=== PATIENT | female | born 1985 | race Caucasian/White ===

== ENCOUNTER 2020-07-21 17:17 | Emergency (ER) | payer SELFPAY ==
--- NOTE | 2020-07-21 17:22 | ERPHSYRPT ---
- History of Present Illness Time Seen by Provider: 07/21/20 17:22 Source: patient Exam Limitations: no limitations Physician History: This is a 35-year-old white female who presents with pain in the palmar aspect of her left hand. She does not recall any specific injury to this hand. She also does not recall seeing an insect bite present. She noticed some redness that is localized in the palm of her left hand 4 days ago and is progressively worsened showing a localized blister. She has not been running a fever. However it does hurt to flex and extend the digits of the left hand. She can do so however. She denies burning this site or injecting any drugs in the site Quality: painful Severity: moderate Location: hands (Left) Possible Causes: no cause identified Associated Symptoms: blisters (Lies palm left hand), No fever Allergies/Adverse Reactions: acetaminophen [From Darvocet-N] Allergy (Verified 07/21/20 17:31) lamotrigine [From Lamictal] Allergy (Verified 07/21/20 17:31) lithium Allergy (Verified 07/21/20 17:31) propoxyphene [From Darvocet-N] Allergy (Verified 07/21/20 17:31) clonazepam [From Klonopin] Adverse Reaction (Verified 07/21/20 17:31) Travel Risk - International Travel Have you traveled outside of the country in past 3 weeks: No - Coronavirus Screening Are you exhibiting any of the following symptoms?: No Close contact with a COVID-19 positive Pt in past 14-21 Days: No - Review of Systems Constitutional: No Symptoms Eyes: No Symptoms Ears, Nose, & Throat: No Symptoms Respiratory: No Symptoms Cardiac: No Symptoms Abdominal/Gastrointestinal: No Symptoms Genitourinary Symptoms: No Symptoms Skin: Cellulitis (Localized palm of left hand), Skin Lesions Neurological: No Symptoms Psychological: No Symptoms Endocrine: No Symptoms Hematologic/Lymphatic: No Symptoms Immunological/Allergic: No Symptoms All Other Systems: Reviewed and Negative - Past Medical History Pertinent Past Medical History: Yes - Past Surgical History Past Surgical History: Yes - Nursing Vital Signs Nursing Vital Signs: Initial Vital Signs Temperature 98.7 F 07/21/20 17:23 Pulse Rate 95 H 07/21/20 17:23 Blood Pressure 113/76 07/21/20 17:23 O2 Sat by Pulse Oximetry 99 07/21/20 17:23 Pain Scale Pain Intensity 10 - Physical Exam General Appearance: no apparent distress, alert, anxiety Eye Exam: PERRL/EOMI, eyes nml inspection Ears, Nose, Throat Exam: normal ENT inspection, moist mucous membranes Neck Exam: normal inspection, non-tender, supple, full range of motion Respiratory Exam: airway intact, No chest tenderness, No respiratory distress Pelvic Exam: not done Rectal Exam: not done Back Exam: normal inspection, normal range of motion, No CVA tenderness, No vertebral tenderness Extremity Exam: tenderness (Palmar aspect localized redness with half centimeter diameter localized central abscess. No proximal streaking. 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, normal mood/affect, nml cerebellar function, nml station & gait, sensation nml Skin Exam: other (Localized cellulitis with abscess as described above) Lymphatic Exam: No adenopathy SpO2 Interpretation: normal O2 Delivery: Room Air Procedures - Incision and Drainage Time of Procedure: 17:50 Site: Left palm of hand Blade Size: other (10-gauge needle) I & D Procedure: betadine prep, culture obtained Results: small amount pus (Odor) - Course Nursing assessment & vital signs reviewed: Yes Ordered Tests: Active Orders 24 hr Category Date Time Status HAND (MINIMUM 3 VIEWS) Stat Exams 07/21/20 17:34 Taken Medication Summary Discontinued Medications Generic Name Dose Route Start Last Admin Trade Name Maura PRN Reason Stop Dose Admin Hydrocodone Bitart/Acetaminophen 1 tab 07/21/20 17:55 07/21/20 18:06 [place] 5/325 Mg PO 07/21/20 17:56 1 tab STAT ONE Administration Hydrocodone Bitart/Acetaminophen Confirm 07/21/20 17:59 [place] 5/325 Mg Administered 07/21/20 18:00 Dose 1 tab .ROUTE .STK-MED ONE Ceftriaxone Sodium 1,000 mg 07/21/20 17:51 07/21/20 18:08 Rocephin 1000 Mg Inj IM 07/21/20 17:52 1,000 mg STAT ONE Administration Ceftriaxone Sodium Confirm 07/21/20 17:59 Rocephin 1000 Mg Inj Administered 07/21/20 18:00 Dose 1,000 mg .ROUTE .STK-MED ONE Cephalexin HCl 500 mg 07/21/20 17:51 07/21/20 18:11 Keflex 500 Mg PO 07/21/20 17:52 Not Given STAT ONE Metronidazole 500 mg 07/21/20 17:54 Flagyl 500 Mg PO 07/21/20 17:55 STAT ONE Trimethoprim/Sulfamethoxazole 1 tab 07/21/20 17:51 07/21/20 18:07 Bactrim Ds Tablet PO 07/21/20 17:52 1 tab STAT ONE Administration Trimethoprim/Sulfamethoxazole Confirm 07/21/20 17:59 Bactrim Ds Tablet Administered 07/21/20 18:00 Dose 1 tab PO .STK-MED ONE - Progress Progress Note: 07/21/20 18:04 Medical decision making: This patient has an abscess is localized in the palmar aspect of her left hand. I do not believe she has tenosynovitis at this point in time. I did incise and drain and culture the abscess that was present. There is no further amount of expressible pus. However I do feel that is important to have this patient return tomorrow morning for reassessment. If her condition is no different, recommendation will likely be to transfer her to a facility that has a hand surgeon and provide her with inpatient, IV antibiotics. Patient was also informed to return to the emergency department sooner than tomorrow if her condition worsens. 07/21/20 18:22 X-ray left hand shows no evidence of any acute fracture or dislocation. There is no foreign body present. There is no subcutaneous air/gas present. Counseled pt/family regarding: diagnosis, need for follow-up, rad results - Departure Departure Disposition: Home Clinical Impression: Abscess of left hand Condition: Stable Critical Care Time: No Additional Instructions: Keep site clean daily with soap and water. Soak left hand in warm soapy water alternated with warm Epson salts 2-3 times a day. Do not apply lotions ointments or creams to the site. Return to the emergency department tomorrow morning for reassessment and evaluation. Return sooner to the emergency department if your condition worsens. Take your medications as prescribed. Prescriptions: Hydrocodone/APAP 5/325 [[place] 5/325 mg] 1 each PO Q8H PRN PRN #8 tablet MDD 3 PRN Reason: Pain Smz/Tmp Ds Tablet [Bactrim Ds Tablet] 1 udtab PO BID #14 tablet Metronidazole 500 mg [Flagyl 500 MG] 500 mg PO TID #21 tablet
[2020-07-21 17:30] VITALS: BP 113/76; PULSE 95; O2SAT 99
[2020-07-21] MEDS ORDERED: BACTRIM DS TABLET PO ONE (17:59)
[2020-07-21] MEDS ORDERED: NORCO 5/325 MG ONE (17:59)
[2020-07-21] MEDS ORDERED: XYLOCAINE 1% HCL 20 ML MDV IJ ONE (17:59)
[2020-07-21] MEDS ORDERED: Rocephin 1000 MG INJ ONE (17:59)
[2020-07-21] MEDS: NORCO 5/325 MG PO ONE (18:06)
[2020-07-21] MEDS: BACTRIM DS TABLET PO ONE (18:07)
[2020-07-21] MEDS: Rocephin 1000 MG INJ IM ONE (18:08)
[2020-07-21] MEDS: KEFLEX 500 MG PO ONE (18:11)
[2020-07-21] MEDS ORDERED: Flagyl 500 MG ONE (18:22)
[2020-07-21] MEDS: Flagyl 500 MG PO ONE (18:24)
--- NOTE | 2020-07-21 20:08 | XRAY ---
Indication: Pain following injury. Comparison: None 3 view left hand obtained. No bone, articular, or soft tissue abnormalities.
== END 2020-07-21 18:55 | disposition home or self-care (01) ==
LOC: ED 17:17
DX: L02.512 Cutaneous abscess of left hand (principal)
CPT/HCPCS: 73130; 87070; 87077; 87186; 96372; 99284; J0696; A9270-GY